=== PATIENT | male | born 1965 | race African-American/Black ===

== ENCOUNTER 2018-10-01 11:03 | Emergency (ER) | payer BC ==
[~2018-10-01] VITALS: Ht 172.7 cm; Wt 75.0 kg
[~2018-10-01 11:03] MED LIST: NO MEDS
[2018-10-01 11:21] VITALS: BP 164/113
[2018-10-01] MEDS ORDERED: AMLODIPINE5 MG PO (11:51)
[2018-10-01] MEDS ORDERED: LISINOPRIL5 MG PO (11:52)
[2018-10-01 12:09] LABS: HEMATOCRIT 41.8 % (39.0-50.0); HEMOGLOBIN 14.1 g/dl (14.0-18.0); IMMATURE GRANULOCYTES 0.4 % (0.0-5.0); MEAN CELL VOLUME 89.5 fL CALC (80.0-100.0); MEAN CORPUSCULAR HGB 30.2 pG CALC (26.0-32.0); MEAN CORPUSCULAR HGB CONC 33.7 g/L CALC (32.0-36.0); NEUT# 4.89 thou/uL (1.82-7.42); RED BLOOD COUNT 4.67 mill/uL (4.70-6.10); RED CELL DISTRI WIDTH 13.9 % (11.5-15.5)
[2018-10-01 12:34] LABS: ANION GAP 12 (6-22 (CALC)); BUN 11 mg/dL (9-20); BUN/CREATININE RATIO 11 (12-20 (CALC)); CARBON DIOXIDE 27 mmol/l (22-30); CHLORIDE 108 mmol/l (95-108); GFR > 60 ML/MIN (>=60 (CALC)); GFR FOR AFR.AMER. > 60 ML/MIN (>=60 (CALC)); SODIUM 142 mmol/l (137-146)
[2018-10-01] MEDS ORDERED: BACTRIM DS1 TAB PO (13:25)
[2018-10-01] MEDS ORDERED: CEPHALEXIN500 M1 PO (13:25)
[2018-10-01] MEDS ORDERED: LISINOPRIL20 MG PO (14:06)
[2018-10-01] MEDS ORDERED: NORVASC5 M1 PO (14:06)
== END 2018-10-01 13:46 | disposition home or self-care (01) | DRG 603 ==
LOC: ED 11:03
PROVIDERS: Family Medicine
DX: L02.215 Cutaneous abscess of perineum (principal)
CPT/HCPCS: Q9967

== ENCOUNTER → 2018-10-03 | Outpatient (REF) | payer BC ==
[~2018-10-03] MED LIST changes: +AMLODIPINE5 MG PO; +BACTRIM DS1 TAB PO; +CEPHALEXIN500 M1 PO; +LISINOPRIL20 MG PO; +LISINOPRIL5 MG PO; +NORVASC5 M1 PO
[2018-10-03 10:13] VITALS: BP 178/101
== END | disposition home or self-care (01) | DRG 581 ==
LOC: FIORUCCI 09:44
PROVIDERS: ATTEND Surgery
PROC: 0H99XZZ Drainage of Perineum Skin, External Approach (ICD-10-PCS; principal; 2018-10-03)
DX: L02.215 Cutaneous abscess of perineum (principal)

== ENCOUNTER → 2018-10-08 | Outpatient (REF) | payer BC ==
[2018-10-08 10:13] VITALS: BP 145/91
== END | disposition home or self-care (01) | DRG 951 ==
LOC: FIORUCCI 09:43
PROVIDERS: ATTEND Surgery
DX: Z48.01 Encounter for change or removal of surgical wound dressing (principal)

== ENCOUNTER 2019-01-25 10:29 | Emergency (ER) | payer BC ==
[~2019-01-25] VITALS: Ht 172.7 cm; Wt 72.7 kg
[2019-01-25] MEDS ORDERED: FLEXERIL5 MG PO (11:10)
[2019-01-25] MEDS ORDERED: OXYCOD/APAP1 TA4 PO (11:11)
[2019-01-25] MEDS ORDERED: BACTRIM DS1 TAB PO (11:47)
[2019-01-25] MEDS ORDERED: KEFLEX500 M1 PO (11:47)
[2019-01-25 11:50] VITALS: BP 120/64
== END 2019-01-25 11:50 | disposition home or self-care (01) | DRG 603 ==
LOC: ED 10:29
DX: L02.01 Cutaneous abscess of face (principal); N49.2 Inflammatory disorders of scrotum; I10 Essential (primary) hypertension

== ENCOUNTER 2019-07-12 11:27 | Emergency (ER) | payer BC ==
[~2019-07-12] VITALS: Ht 172.7 cm; Wt 74.1 kg
[~2019-07-12 11:27] MED LIST changes: +FLEXERIL5 MG PO; +KEFLEX500 M1 PO; +OXYCOD/APAP1 TA4 PO
[2019-07-12] MEDS ORDERED: GABAPENTIN300 M2 PO (11:46)
[2019-07-12] MEDS ORDERED: MOBIC7.5 M1 PO (11:47)
[2019-07-12] MEDS ORDERED: NORVASC10 M1 PO (11:48)
[2019-07-12] MEDS ORDERED: ZESTRIL10 M1 PO (11:49)
[2019-07-12] MEDS ORDERED: CEPHALEXIN500 MG PO (11:58)
[2019-07-12 12:10] VITALS: BP 158/80
== END 2019-07-12 12:10 | disposition home or self-care (01) | DRG 607 ==
LOC: ED 11:27
DX: R23.8 Other skin changes (principal); L03.116 Cellulitis of left lower limb; I10 Essential (primary) hypertension; F17.200 Nicotine dependence, unspecified, uncomplicated

== ENCOUNTER 2022-09-27 08:14 | Emergency (ER) | payer MEDICARE ==
[~2022-09-27] VITALS: Ht 172.7 cm; Wt 93.0 kg
[~2022-09-27 08:14] MED LIST changes: +CEPHALEXIN500 MG PO; +GABAPENTIN300 M2 PO; +MOBIC7.5 M1 PO; +NORVASC10 M1 PO; +ZESTRIL10 M1 PO
[2022-09-27 08:32] VITALS: BP 130/90
[2022-09-27] MEDS ORDERED: BACTRIM DS1 TAB PO (09:04)
[2022-09-27 09:08] VITALS: BP 130/90
== END 2022-09-27 09:15 | disposition home or self-care (01) ==
LOC: ED 08:14
PROC: 0H98XZX Drainage of Buttock Skin, External Approach, Diagnostic (ICD-10-PCS; principal; 2022-09-27)
DX: L02.31 Cutaneous abscess of buttock (principal); I10 Essential (primary) hypertension; F17.200 Nicotine dependence, unspecified, uncomplicated

== ENCOUNTER 2022-12-15 08:20 | Day surgery (SDC) | payer MEDICARE ==
[~2022-12-15] VITALS: Ht 172.7 cm; Wt 90.7 kg
[~2022-12-15 08:20] MED LIST changes: +CYCLOBENZAPRINE10 MG PO; +DIAZEPAM5 M1 PO; +FENOFIBRATE134 M1 PO; +HYDROCHLOROT25 MG PO; +SIMVASTATIN20 M1 PO; +XTAMPZA ER9 MG PO
[2022-12-15 11:49] VITALS: BP 134/86
== END 2022-12-15 13:15 | disposition home or self-care (01) ==
LOC: ENDO 08:20
PROVIDERS: ATTEND Surgery
PROC: 0DJD8ZZ Inspection of Lower Intestinal Tract, Via Natural or Artificial Opening Endoscopic (ICD-10-PCS; principal; 2022-12-15)
DX: Z12.11 Encounter for screening for malignant neoplasm of colon (principal); K64.8 Other hemorrhoids; I10 Essential (primary) hypertension; D57.3 Sickle-cell trait; F17.290 Nicotine dependence, other tobacco product, uncomplicated

== ENCOUNTER 2023-03-29 08:51 | Emergency (ER) | payer MEDICARE ==
[~2023-03-29] VITALS: Ht 172.7 cm; Wt 81.6 kg
[2023-03-29] VITALS (7 sets, daily range): BP systolic 116–142; BP diastolic 90–93
[2023-03-29 10:03] LABS: BASO% 0.4 % (0-3); EOS% 1.6 % (0-8); HEMATOCRIT 39.9 % (39.0-50.0); HEMOGLOBIN 13.6 g/dl (14.0-18.0); IMMATURE GRANULOCYTES 0.2 % (0.0-5.0); LYMPH% 33.3 % (15-41); MEAN CELL VOLUME 84.9 fL CALC (80.0-100.0); MEAN CORPUSCULAR HGB 28.9 pG CALC (26.0-32.0); MEAN CORPUSCULAR HGB CONC 34.1 g/dL CAL (32.0-36.0); NEUT# 5.33 thou/uL (1.82-7.42); NEUT% 56.5 % (42-76); RED BLOOD COUNT 4.7 mill/uL (4.70-6.10); RED CELL DISTRI WIDTH 13.9 % (11.5-15.5)
[2023-03-29 10:05] LABS: ALBUMIN 4.4 g/dL (3.2-5.0); ALKALINE PHOSPHATASE 115 u/l (38-126); ANION GAP 12 (6-22 (CALC)); BILIRUBIN, TOTAL 0.3 mg/dL (0.2-1.3); BUN 16 mg/dL (9-20); BUN/CREATININE RATIO 15 (12-20 (CALC)); CARBON DIOXIDE 27 mmol/l (22-30); CHLORIDE 103 mmol/l (95-108); CREATININE 1.1 mg/dL (0.7-1.3); GFR FOR AFR.AMER. > 60 ML/MIN (>=60 (CALC)); GFR OTHER RACES > 60 ML/MIN (>=60 (CALC)); POTASSIUM 3.7 mmol/l (3.5-5.1); SGOT/AST 36 u/l (17-59); SODIUM 138 mmol/l (137-146); TOTAL PROTEIN 8.5 g/dL (6.3-8.2)
[2023-03-29 10:11] LABS: ACT PARTIAL THROMBO TIME 24.7 SECONDS (20.0-32.5)
[2023-03-29 10:14] LABS: D-DIMER 0.2 mg/L (0.19-0.60)
== END 2023-03-29 12:14 | disposition home or self-care (01) ==
LOC: ED 08:51
PROVIDERS: Family Medicine
DX: R00.2 Palpitations (principal); I10 Essential (primary) hypertension; E78.00 Pure hypercholesterolemia, unspecified; F17.200 Nicotine dependence, unspecified, uncomplicated

== ENCOUNTER 2024-08-27 07:49 | Emergency (ER) | payer MEDICARE ==
[~2024-08-27] VITALS: Ht 172.7 cm; Wt 86.1 kg
[2024-08-27] VITALS (20 sets, daily range): BP systolic 108–143; BP diastolic 64–112
[2024-08-27] MEDS ORDERED: ACTIVATED CHARCOAL 25 GM LIQ PO ONE (07:55)
[2024-08-27] MEDS ORDERED: ONDANSETRON HCl 4 MG/2 ML SDV IV ONE (07:55)
[2024-08-27] MEDS ORDERED: SODIUM CHLORIDE 0.9% 1,000 ML IV ONE (08:05)
[2024-08-27 08:23] LABS: BASO% 0.2 % (0-3); EOS% 1.9 % (0-8); HEMATOCRIT 42.6 % (39.0-50.0); IMMATURE GRANULOCYTES 0.3 % (0.0-5.0); LYMPH% 43.4 % (15-41); MEAN CELL VOLUME 88.6 fL CALC (80.0-100.0); MEAN CORPUSCULAR HGB 29.1 pG CALC (26.0-32.0); MEAN CORPUSCULAR HGB CONC 32.9 g/dL CAL (32.0-36.0); MONO% 9.3 % (2-13); NEUT# 4.6 thou/uL (1.82-7.42); NEUT% 44.9 % (42-76); RED BLOOD COUNT 4.81 mill/uL (4.70-6.10); RED CELL DISTRI WIDTH 14.4 % (11.5-15.5)
[2024-08-27] MEDS ORDERED: TRAZODONE50 MG PO (08:24)
[2024-08-27 08:51] LABS: ALBUMIN 4.8 g/dL (3.2-5.0); ALKALINE PHOSPHATASE 86 u/l (38-126); ANION GAP 13 (6-22 (CALC)); BUN 14 mg/dL (9-20); BUN/CREATININE RATIO 12 (12-20 (CALC)); CARBON DIOXIDE 24 mmol/l (22-30); CHLORIDE 108 mmol/l (95-108); CREATININE 1.2 mg/dL (0.7-1.3); ESTIMATED GFR 70 ML/MIN (>=90 (CALC)); ETHYL ALCOHOL 0 mg/dl (0-30); POTASSIUM 3.7 mmol/l (3.5-5.1); SGOT/AST 34 u/l (17-59); SODIUM 141 mmol/l (137-146); TOTAL PROTEIN 8.4 g/dL (6.3-8.2)
[2024-08-27 08:52] LABS: BILIRUBIN, TOTAL 0.7 mg/dL (0.2-1.3)
== END 2024-08-27 14:20 | disposition home or self-care (01) ==
LOC: ED 07:49
PROVIDERS: Family Medicine
DX: T43.211A Poisoning by selective serotonin and norepinephrine reuptake inhibitors, accidental (unintentional), initial encounter (principal); R40.0 Somnolence; R11.2 Nausea with vomiting, unspecified; I10 Essential (primary) hypertension; E78.00 Pure hypercholesterolemia, unspecified; F17.200 Nicotine dependence, unspecified, uncomplicated
CPT/HCPCS: J2405